=== PATIENT | female | born 1950 | race Caucasian/White ===

== ENCOUNTER 2018-01-04 09:41 | Inpatient (IN) | payer MEDICARE, OTHER, SELFPAY ==
[2018-01-04] VITALS (12 sets, daily range): BP systolic 125–164; BP diastolic 43–66; PULSE 65–84; RESP 15–18; TEMP 36.5–37.4; O2SAT 92–98; BMI 36.0
--- NOTE | 2018-01-04 10:18 | ED.PEDSOB ---
HPI - Pediatric SOB/Dyspnea General Chief Complaint: Shortness of Breath/Dyspnea Stated Complaint: POSSIBLE ASTHMA Time Seen by Provider: 01/04/18 10:17 Related Data Home Medications Medication Instructions Recorded Confirmed albuterol sulfate [ProAir HFA] 1 ea INH PRN #0 02/11/11 01/04/18 aspirin 81 mg PO DAILY #0 02/11/11 01/04/18 metformin 1,000 mg PO BID #0 02/11/11 01/04/18 gabapentin [Neurontin] 300 mg PO DAILY #0 02/02/17 01/04/18 sitagliptin [Januvia] 50 mg PO QDAY #0 02/02/17 01/04/18 trazodone 100 mg PO HS #0 02/02/17 01/04/18 atorvastatin 40 mg PO DAILY 01/04/18 01/04/18 ergocalciferol (vitamin D2) 1 cap PO QWEEK 01/04/18 lisinopril 40 mg PO DAILY 01/04/18 01/04/18 metoprolol succinate 25 mg PO DAILY 01/04/18 01/04/18 metoprolol succinate [Toprol XL] 25 mg PO DAILY 01/04/18 01/04/18 sodium chloride 1 drp OPHTHALMIC (EYE) DIRECTED 01/04/18 01/04/18 Allergies Allergy/AdvReac Type Severity Reaction Status Date / Time acetaminophen [From VICODIN] Allergy Unknown Unverified 11/03/17 12:15 hydrocodone [From VICODIN] Allergy Unknown Unverified 11/03/17 12:15 morphine [MORPHINE] Allergy Unknown Unverified 11/03/17 12:15 Course Vital Signs - 8 hr 01/04/18 09:54 Temperature 99.4 F Pulse Rate 84 Respiratory Rate 16 Blood Pressure 141/43 H Pulse Oximetry 95 Discharge Plan Departure Prescriptions: No Action metformin 500 mg Tablet 1,000 mg PO BID Qty: 0 RF: 0 aspirin 81 mg Tablet,Delayed Release (Dr/Ec) 81 mg PO DAILY Qty: 0 RF: 0 albuterol sulfate [ProAir HFA] 90 mcg/actuation Hfa Aerosol Inhaler 1 ea INH PRN Qty: 0 RF: 0 trazodone 100 MG tablet 100 mg PO HS Qty: 0 RF: 0 gabapentin [Neurontin] 300 MG capsule 300 mg PO DAILY Qty: 0 RF: 0 sitagliptin [Januvia] 50 MG tablet 50 mg PO QDAY Qty: 0 RF: 0 sodium chloride 5 % drops 1 drp ophthalmic (eye) DIRECTED RF: 0 atorvastatin 40 mg tablet 40 mg PO DAILY RF: 0 metoprolol succinate 25 mg tablet extended release 24 hr 25 mg PO DAILY RF: 0 metoprolol succinate [Toprol XL] 25 mg tablet extended release 24 hr 25 mg PO DAILY RF: 0 ergocalciferol (vitamin D2) 50,000 unit capsule 1 cap PO QWEEK RF: 0 lisinopril 40 mg tablet 40 mg PO DAILY RF: 0
--- NOTE | 2018-01-04 11:02 | ED.SOB ---
HPI - SOB/Dyspnea General Chief Complaint: Shortness of Breath/Dyspnea Stated Complaint: POSSIBLE ASTHMA Time Seen by Provider: 01/04/18 10:17 Source: patient Mode of arrival: ambulatory Limitations: no limitations History of Present Illness 67-year-old female with a history of asthma presents with 4 days of increasing cough, dyspnea, and wheezing. She has been using her home inhalers without relief. She notes fevers and chills but no fever is measured here. She is not finding relief with her home inhalers. She is having brown sputum several times a day. She notes some lower abdominal pain related to coughing and is incontinent of stool with coughing episodes. MD Complaint: shortness of breath and cough Consistency/Duration: constant and progressively worsening Relieving factors: bronchodilators Known history of: asthma Related Data Home Medications Medication Instructions Recorded Confirmed albuterol sulfate [ProAir HFA] 1 ea INH PRN #0 02/11/11 01/04/18 aspirin 81 mg PO DAILY #0 02/11/11 01/04/18 metformin 1,000 mg PO BID #0 02/11/11 01/04/18 gabapentin [Neurontin] 300 mg PO DAILY #0 02/02/17 01/04/18 sitagliptin [Januvia] 50 mg PO QDAY #0 02/02/17 01/04/18 trazodone 100 mg PO HS #0 02/02/17 01/04/18 atorvastatin 40 mg PO DAILY 01/04/18 01/04/18 ergocalciferol (vitamin D2) 1 cap PO QWEEK 01/04/18 01/04/18 lisinopril 20 mg PO DAILY 01/04/18 01/04/18 metoprolol succinate [Toprol XL] 25 mg PO DAILY 01/04/18 01/04/18 sodium chloride 1 drp OPHTHALMIC (EYE) DIRECTED 01/04/18 01/04/18 Allergies Allergy/AdvReac Type Severity Reaction Status Date / Time acetaminophen [From VICODIN] Allergy Unknown Unverified 11/03/17 12:15 hydrocodone [From VICODIN] Allergy Unknown Unverified 11/03/17 12:15 morphine [MORPHINE] Allergy Unknown Unverified 11/03/17 12:15 Review of Systems Review of Systems All systems reviewed & are unremarkable except as noted in HPI and below Constitutional Denies chills, Denies fever(s), Denies lethargy and Denies weakness Eyes Denies change in vision, Denies eye discharge, Denies irritation and Denies loss of vision ENT Ears, Nose, Mouth, and Throat: Denies change in voice, Denies neck pain and Denies sore throat Cardiovascular Denies chest pain, Denies irregular heart rhythm, Denies lightheadedness, Denies palpitations, Reports dyspnea, Reports dyspnea on exertion and Denies orthopnea Respiratory Reports cough, Reports dyspnea, Reports dyspnea on exertion and Reports wheezing Gastrointestinal Gastrointestinal: Denies abdominal pain, Denies change in bowel habits, Denies diarrhea, Denies nausea and Denies vomiting Genitourinary Denies hematuria, Denies flank pain, Denies urinary incontinence and Denies urinary urgency Musculoskeletal Denies neck pain Integumentary/Breasts Denies pruritus, Denies erythema, Denies rash and Denies wounds Neurologic Denies confusion, Denies loss of vision and Denies weakness Psychiatric Denies anxiety, Denies confusion, Denies depression, Denies homicidal ideation and Denies suicidal ideation Endocrine Denies palpitations Hematologic/Lymphatic Denies easy bruising Allergic/Immunologic Reports wheezing PFSH Social History household members: spouse Smoking Status: Never smoker alcohol intake: never Exam Initial Vital Signs Initial Vital Signs: Vital Signs Temperature 99.4 F 01/04/18 09:54 Pulse Rate 84 01/04/18 09:54 Respiratory Rate 16 01/04/18 09:54 Blood Pressure 141/43 H 01/04/18 09:54 Pulse Oximetry 95 01/04/18 09:54 Const General: cooperative and well developed Nutritional Appearance: well nourished Orientation: alert, awake, oriented x3 and not confused [facility] Head: normocephalic and atraumatic Ears: external ears normal and TM's normal bilaterally Nose: external nose normal and No nasal discharge Face and sinus: sinuses nontender, face symmetric, no sinus tenderness and No dry mucous membranes Mouth: oral mucosae normal and moist mucous membranes Teeth and gingiva: dentition normal Throat: tonsils normal and uvula midline Eyes General: appearance normal, both eyes and all related structures Eyelids: eyelids normal Conjunctivae: conjunctivae normal Sclera: sclerae normal Pupils: PERRL EOM: EOM intact bilaterally Neck Neck: normal visual inspection, trachea midline, No lymphadenopathy, No midline deformity and No JVD Lymphatic: No lymphedema Chest Chest: normal inspection of the chest Resp Effort & Inspection: normal respiratory effort, able to speak in complete sentences, audible wheezes, cough, no grunting, labored, no respiratory distress and no use of accessory muscles Auscultation: rhonchi and wheezes Cardio Rate: regular rate Rhythm: regular rhythm Heart Sounds: no click, no gallops, no murmurs and no rubs Pulses: normal peripheral pulses GI Inspection: non-distended Palpation: soft, no hepatosplenomegaly, No guarding, No pulsatile mass and No tender Auscultation: normal bowel sounds Back/Spine/Pelvis Back: No CVA tenderness Cervical Spine: cervical ROM normal and No pain with cervical ROM Thoracic/Lumbar Spine: thoracic and lumbar spine normal to inspection Skin General: no rashes or lesions noted, No jaundice and No petechiae Neuro General: alert, oriented x3, gait normal and no focal motor deficits Speech: speech normal Extrem General: full ROM, no clubbing, cyanosis or edema, no pedal edema and no calf tenderness Psych Appearance: well kempt Mental Status: mental status grossly normal Attitude: cooperative Thought Content: normal and suicidality Judgment: judgment good Course Orders Ordered: ED Orders 01/04/18 10:59 Consult to Respiratory Therapy Evaluate & Treat 01/04/18 11:01 XR chest 1V Stat 01/04/18 11:20 B Type Natriuretic Peptide Stat Complete Blood Count AUTO DIFF Stat Comprehensive Metabolic Panel Stat D Dimer Stat Magnesium Stat Procalcitonin Stat 01/04/18 15:18 RT Consult Eval and Treat Now Albuterol (Ventolin) 2.5 mg INH Q2H PRN PRN Reason: Shortness Of Breath Aspirin (Aspirin Ec) 81 mg PO 1700 [facility] Atorvastatin Calcium (Lipitor) 40 mg PO 2100 [facility] Dextrose (D50w) 25 gm IV PRN PRN PRN Reason: HYPOGLYCEMIA Gabapentin (Neurontin) 300 mg PO BEDTIME [facility] Ceftriaxone Sodium/Dextrose (Rocephin) 1 gm in 50 mls @ 100 mls/hr IV Q24H [facility] Azithromycin 500 mg/ Dextrose 250 mls @ 250 mls/hr IV Q24H [facility] Insulin Aspart (Novolog Flexpen) 0 unit SUBCUT ACHS [facility]; Protocol Last Admin: 01/04/18 18:19 Dose: Not Given Lisinopril (Zestril) 20 mg PO 1700 [facility] Last Admin: 01/04/18 18:23 Dose: 20 mg Metformin HCl (Glucophage) 1,000 mg PO 1700,2100 [facility] Last Admin: 01/04/18 18:21 Dose: 1,000 mg Methylprednisolone (Solu-Medrol 125 Mg Vial) 80 mg IV Q8HR [facility] Stop: 01/05/18 06:01 Metoprolol Succinate (Toprol Xl) 25 mg PO 1700 [facility] Last Admin: 01/04/18 18:24 Dose: 25 mg Non-Formulary Medication (Sodium Chloride [Sodium Chloride]) 1 drop ophthalmic (eye) PRN PRN PRN Reason: dry eyes Prednisone (Deltasone) 60 mg PO DAILY [facility] Sitagliptin Phosphate (Januvia) 50 mg PO 1700 [facility] Last Admin: 01/04/18 18:23 Dose: 50 mg Trazodone HCl (Desyrel) 100 mg PO BEDTIME [facility] Discontinued Medications Albuterol (Ventolin) 2.5 mg INH NOW ONE Stop: 01/04/18 13:32 Last Admin: 01/04/18 13:33 Dose: 2.5 mg Albuterol/Ipratropium (Duoneb) 3 ml INH NOW ONE Stop: 01/04/18 11:00 Last Admin: 01/04/18 11:20 Dose: 3 ml Azithromycin (Zithromax) 500 mg PO NOW ONE Stop: 01/04/18 11:00 Last Admin: 01/04/18 11:33 Dose: 500 mg Magnesium Sulfate (Magnesium Sulfate) 2 gm in 50 mls @ 25 mls/hr IV NOW ONE Stop: 01/04/18 12:58 Last Infusion: 01/04/18 13:50 Dose: 0 mls/hr Admin: 01/04/18 11:49 Dose: 25 mls/hr Ceftriaxone Sodium 1,000 mg/ (Dextrose) 50 mls @ 100 mls/hr IV NOW ONE Stop: 01/04/18 13:11 Last Infusion: 01/04/18 14:40 Dose: 0 mls/hr Admin: 01/04/18 13:56 Dose: 100 mls/hr Methylprednisolone (Solu-Medrol 125 Mg Vial) 125 mg IV NOW ONE Stop: 01/04/18 11:00 Last Admin: 01/04/18 11:32 Dose: 125 mg Reevaluation(s) Reevaluation #1: Patient is re-evaluated and is hypoxic in the upper 80s. Notes that her wheezing and dyspnea is worsening, but did initially improve after inhalers. Would like another treatment. Plan to admit the patient due to hypoxia. She is agreeable. Time: 13:55 Consultations Consultation #1: Discussed patient's care with Dr. Tai who will admit the patient Time: 13:56 Vital Signs - 8 hr 01/04/18 11:52 01/04/18 12:31 01/04/18 13:30 Temperature Pulse Rate 65 69 Respiratory Rate 18 15 Blood Pressure Blood Pressure [Right Arm] 125/44 H 144/58 H Pulse Oximetry 98 92 92 01/04/18 13:38 01/04/18 14:42 01/04/18 15:14 Temperature 98.0 F Pulse Rate 70 81 Respiratory Rate 17 16 Blood Pressure 144/61 H Blood Pressure [Right Arm] 132/58 H Pulse Oximetry 94 94 96 01/04/18 16:39 01/04/18 18:23 01/04/18 18:24 Temperature Pulse Rate 81 80 Respiratory Rate Blood Pressure 144/61 H 144/61 H Blood Pressure [Right Arm] Pulse Oximetry 97 MDM - SOB/Dyspnea Differential Diagnosis Likely acute exacerbation of chronic obstructive airways disease, congestive heart failure, community acquired pneumonia, asthma with exacerbation and pulmonary embolism Medical Records Attestation: I reviewed the patient's medical records. Lab Data Attestation: I reviewed the patient's lab results. Result diagrams: 01/04/18 11:20 01/04/18 11:20 Lab Results 01/04/18 01/04/18 01/04/18 Range/Units 11:20 11:20 11:20 WBC 9.8 (4.5-11.0) X10^3/uL RBC 3.59 L (4.0-5.2) X10^6/uL Hgb 11.0 L (12.0-16.0) g/dL Hct 32.5 L (36-46) % MCV 90.3 (80-100) fL MCH 30.6 (26-34) PG MCHC 33.9 (30-36) % RDW 12.2 (11.6-14.8) % Plt Count 346 (150-400) X10^3/uL Neut % (Auto) 74.7 (50-75) % Lymph % (Auto) 18.2 L (25-40) % [place] % (Auto) 6.1 (3-14) % Eos % (Auto) 0.6 L (2-4) % Baso % (Auto) 0.4 (0-2) % Neut # (Auto) 7300 H (8766-2856) /uL D-Dimer 464 H (<230) ng/mL Sodium (137-145) mmol/L Potassium (3.4-5.1) mmol/L Chloride (98-107) mmol/L Carbon Dioxide (22-32) mmol/L BUN (7-17) mg/dL Creatinine (0.52-1.04) mg/dL Estimated GFR (>60) mL/min BUN/Creatinine Ratio (6-22) Glucose (80-110) mg/dL Calcium (8.4-10.2) mg/dL Magnesium (1.6-2.3) mg/dL Total Bilirubin (0.2-1.3) mg/dL AST (14-36) IU/L ALT (9-52) IU/L Alkaline Phosphatase (38-126) U/L B-Natriuretic Peptide < 100.0 (<100) Total Protein (6.3-8.2) g/dL Albumin (3.5-5.0) g/dL Globulin (1.7-4.1) g/dL Albumin/Globulin Ratio (1.0-2.8) Procalcitonin 0.08 (<0.5) ng/mL 01/04/18 Range/Units 11:20 WBC (4.5-11.0) X10^3/uL RBC (4.0-5.2) X10^6/uL Hgb (12.0-16.0) g/dL Hct (36-46) % MCV (80-100) fL MCH (26-34) PG MCHC (30-36) % RDW (11.6-14.8) % Plt Count (150-400) X10^3/uL Neut % (Auto) (50-75) % Lymph % (Auto) (25-40) % [place] % (Auto) (3-14) % Eos % (Auto) (2-4) % Baso % (Auto) (0-2) % Neut # (Auto) (3744-4032) /uL D-Dimer (<230) ng/mL Sodium 138 (137-145) mmol/L Potassium 4.4 (3.4-5.1) mmol/L Chloride 102 (98-107) mmol/L Carbon Dioxide 26 (22-32) mmol/L BUN 15 (7-17) mg/dL Creatinine 1.10 H (0.52-1.04) mg/dL Estimated GFR 49.2 L (>60) mL/min BUN/Creatinine Ratio 13.6 (6-22) Glucose 169 H (80-110) mg/dL Calcium 8.8 (8.4-10.2) mg/dL Magnesium 1.3 L (1.6-2.3) mg/dL Total Bilirubin 0.4 (0.2-1.3) mg/dL AST 27 (14-36) IU/L ALT 35 (9-52) IU/L Alkaline Phosphatase 99 (38-126) U/L B-Natriuretic Peptide (<100) Total Protein 6.8 (6.3-8.2) g/dL Albumin 3.7 (3.5-5.0) g/dL Globulin 3.1 (1.7-4.1) g/dL Albumin/Globulin Ratio 1.2 (1.0-2.8) Procalcitonin (<0.5) ng/mL Imaging Data Chest x-ray: Radiologist's impression: PROCEDURE: XR CHEST 1V INDICATIONS: sob, wheezing TECHNIQUE: One view of the chest was acquired. COMPARISON: Merged with [facility], CHEST 1 VIEW, 02/02/2017, 19:24. FINDINGS: Surgical changes and devices: None. Lungs and pleura: No pleural effusions or pneumothorax. Mild bilateral perihilar opacities present. Bronchial wall thickening is present. Mediastinum: Mediastinal contours appear normal. Heart size is normal. Bones and chest wall: No suspicious bony lesions. Overlying soft tissues appear unremarkable. IMPRESSION: Bilateral bronchopneumonia. Dictated by: Frieda Lopez M.D. on 01/04/2018 at 11:41 Approved by: Frieda Lopez M.D. on 01/04/2018 at 11:41 [facility] Narrative Medical decision making narrative: 67-year-old female with a history of asthma presenting with 4 days of increasing shortness of breath, dyspnea, and sputum production. Her chest x-ray shows bilateral bronchopneumonia and she is hypoxic here. She was started on Rocephin and azithromycin in the ER and received Solu-Medrol, DuoNeb, albuterol x2, and magnesium. Because of the hypoxia and the fact that she does not use oxygen at home she is admitted for further workup and treatment of her condition. I did consider pulmonary embolus initially but as there is a broncho pneumonia to explain her symptoms, I did not feel that CT angiogram needed to be performed given the obvious alternative explanation Discharge Plan Departure Patient Disposition: Admitted As Inpatient Clinical Impression: Community acquired pneumonia, Acute respiratory failure with hypoxia Discharge Date/Time: 01/04/18 16:05 Interventions: ED Discharge Assessment Last Done: 01/04/18 16:30 Admit Date/Time: 01/04/18 14:46 Admit Provider: Monica Tai
[2018-01-04] MEDS: ALBUTEROL/IPRATROPIUM 3 ML AMPUL INH (11:20)
[2018-01-04] MEDS: methylPREDNISolone 125 MG/2 ML VIAL IV (11:32)
[2018-01-04] MEDS: AZITHROMYCIN 250 MG TABLET 500 MG PO (11:33)
[2018-01-04 11:35] LABS: Add Manual Diff / Slide Review NO; Basophils Percent Auto 0.4 % (0-2); Eosinophils Percent Auto 0.6 % (2-4); Hematocrit 32.5 % (36-46); Lymphocytes Percent Auto 18.2 % (25-40); Mean Corpuscular HGB Conc 33.9 % (30-36); Mean Corpuscular Hemoglobin 30.6 PG (26-34); Mean Corpuscular Volume 90.3 fL (80-100); Monocytes Percent Auto 6.1 % (3-14); Neutrophils Absolute Auto 7300 /uL (3000-5900); Neutrophils Percent Auto 74.7 % (50-75); Platelet Count 346 X10^3/uL (150-400); Red Blood Cell Count 3.59 X10^6/uL (4.0-5.2); Red Cell Distribution Width 12.2 % (11.6-14.8); White Blood Cell Count 9.8 X10^3/uL (4.5-11.0)
[2018-01-04 11:43] LABS: D Dimer 464 ng/mL (<230)
[2018-01-04] MEDS: MAGNESIUM SULFATE 2 GM/50 ML PIGGYBACK IV (11:49)
[2018-01-04 11:50] LABS: Alanine Aminotransferase 35 IU/L (9-52); Albumin 3.7 g/dL (3.5-5.0); Albumin Globulin Ratio 1.2 (1.0-2.8); Alkaline Phosphatase 99 U/L (38-126); Aspartate Aminotransferase 27 IU/L (14-36); BUN Creatinine Ratio 13.6 (6-22); Bilirubin Total 0.4 mg/dL (0.2-1.3); Blood Urea Nitrogen 15 mg/dL (7-17); Calcium 8.8 mg/dL (8.4-10.2); Carbon Dioxide 26 mmol/L (22-32); Chloride 102 mmol/L (98-107); Estimated Glomerular Filt Rate 49.2 mL/min (>60); Globulin 3.1 g/dL (1.7-4.1); Glucose 169 mg/dL (80-110); HEMOLYSIS < 15 (0-50); Magnesium 1.3 mg/dL (1.6-2.3); Potassium 4.4 mmol/L (3.4-5.1); Sodium 138 mmol/L (137-145); Total Protein 6.8 g/dL (6.3-8.2)
[2018-01-04 11:55] LABS: B Type Natriuretic Peptide < 100.0 (<100)
[2018-01-04 12:04] LABS: Procalcitonin 0.08 ng/mL (<0.5)
--- NOTE | 2018-01-04 12:30 | PC.NURSE ---
Lung sounds deferred to RT
[2018-01-04] MEDS: ALBUTEROL 2.5 MG/3 ML NEB INH (13:33)
[2018-01-04] MEDS: cefTRIAXone 1,000 MG in DEXTROSE 5 % IN WATER 50 ML 100 ML IV (13:56)
--- NOTE | 2018-01-04 15:27 | PM.HP.1 ---
History of Present Illness Date Patient Seen: 01/04/18 Time Patient Seen: 13:00 Chief complaint: Community acquired pneumonia, acute respiratory Narrative: 67-year-old female, patient of Dr. Sol at the [facility], who was brought to the [facility] today for cough and shortness of breath for 3 days. She started having coughing spells with yellow green colored phlegm about 3 days ago. She also had wheezing and shortness of breath. She had chills and shivering in the past 2 nights. She has remote history of asthma in childhood. She had 2 exacerbations with the last exacerbation about 20 years ago. She was found to have room air oxygen saturation of 88% upon arrival at the ER. Chest x-ray suggests possible bilateral perihilar infiltrate. She was diagnosed with pneumonia. She received a nebulizer treatment and IV Solu-Medrol. She also was started on IV ceftriaxone and azithromycin. She is going to be admitted to the medicine floor for bacterial pneumonia. Patient History Comment: Type 2 diabetes Remote history of asthma Hypertension Osteoarthritis in lower back, knees, and hands Chest pain, hospitalized at [facility] in September of 2017. Had negative Lexiscan Status post cholecystectomy Benign lesion removed from the left breast Family & Social History Social History: She is . She lives with her . Denies cigarette smoking or is alcohol drinking. Meds Home Medications Medication Instructions Recorded Confirmed Type albuterol sulfate [ProAir HFA] 1 ea INH PRN #0 02/11/11 01/04/18 History aspirin 81 mg PO DAILY #0 02/11/11 01/04/18 History metformin 1,000 mg PO BID #0 02/11/11 01/04/18 History gabapentin [Neurontin] 300 mg PO DAILY #0 02/02/17 01/04/18 History sitagliptin [Januvia] 50 mg PO QDAY #0 02/02/17 01/04/18 History trazodone 100 mg PO HS #0 02/02/17 01/04/18 History atorvastatin 40 mg PO DAILY 01/04/18 01/04/18 History ergocalciferol (vitamin D2) 1 cap PO QWEEK 01/04/18 01/04/18 History lisinopril 20 mg PO DAILY 01/04/18 01/04/18 History metoprolol succinate [Toprol XL] 25 mg PO DAILY 01/04/18 01/04/18 History sodium chloride 1 drp OPHTHALMIC (EYE) DIRECTED 01/04/18 01/04/18 History Allergies Allergy/AdvReac Type Severity Reaction Status Date / Time acetaminophen [From VICODIN] Allergy Unknown Unverified 11/03/17 12:15 hydrocodone [From VICODIN] Allergy Unknown Unverified 11/03/17 12:15 morphine [MORPHINE] Allergy Unknown Unverified 11/03/17 12:15 Review of Systems Constitutional Constitutional: Reports chills, Reports fatigue and Reports night sweats Cardiovascular Comments: No chest pain Respiratory Respiratory: Reports as per HPI Gastrointestinal Comments: No abdominal pain, nausea, or vomiting Genitourinary Comments: Denies dysuria Musculoskeletal Musculoskeletal: Reports back pain Neurologic Comments: No headache or blurred vision Endocrine Endocrine: Reports fatigue Exam Vital Signs (past 8 hours): Vital Signs - 8 hr 01/04/18 09:54 01/04/18 11:52 01/04/18 12:31 Temperature 99.4 F Pulse Rate 84 65 Respiratory Rate 16 18 Blood Pressure 141/43 H Blood Pressure [Right Arm] 125/44 H Pulse Oximetry 95 98 92 01/04/18 13:30 01/04/18 13:38 01/04/18 14:42 Temperature Pulse Rate 69 70 Respiratory Rate 15 17 Blood Pressure Blood Pressure [Right Arm] 144/58 H 132/58 H Pulse Oximetry 92 94 94 Pulse Oximetry 94 Oxygen Delivery Method Nasal Cannula Oxygen Flow Rate 2 Narrative Exam Narrative: GENERAL: Middle-aged woman in no acute distress. HEENT: Head normocephalic, atraumatic. Eyes pupils equal round NECK: Supple, no JVD, CHEST: Fine crackles on bilateral bases, no wheezing appreciated CARDIAC: Regular rate and rhythm without murmurs, rubs or gallops. ABDOMEN: Soft, nontender. Normoactive bowel sounds all 4 quadrants. No guarding or rebound. EXTREMITIES: Normal range of motion, no clubbing or edema. NEUROLOGICAL: Alert and oriented; Normal muscle strength. SKIN: Warm, dry, no petechiae, no rashes or lesions. Objective Imaging Chest x-ray: Radiologist's impression: No pleural effusions or pneumothorax. Mild bilateral perihilar opacities present. Bronchial wall thickening is present. Bilateral bronchopneumonia Labs Result Diagrams: 01/04/18 11:20 01/04/18 11:20 Labs: Laboratory Results - last 24 hr 01/04/18 01/04/18 01/04/18 11:20 11:20 11:20 WBC 9.8 RBC 3.59 L Hgb 11.0 L Hct 32.5 L MCV 90.3 MCH 30.6 MCHC 33.9 RDW 12.2 Plt Count 346 Neut % (Auto) 74.7 Lymph % (Auto) 18.2 L [place] % (Auto) 6.1 Eos % (Auto) 0.6 L Baso % (Auto) 0.4 Neut # (Auto) 7300 H D-Dimer 464 H Sodium Potassium Chloride Carbon Dioxide BUN Creatinine Estimated GFR BUN/Creatinine Ratio Glucose Calcium Magnesium Total Bilirubin AST ALT Alkaline Phosphatase B-Natriuretic Peptide < 100.0 Total Protein Albumin Globulin Albumin/Globulin Ratio Procalcitonin 0.08 01/04/18 11:20 WBC RBC Hgb Hct MCV MCH MCHC RDW Plt Count Neut % (Auto) Lymph % (Auto) [place] % (Auto) Eos % (Auto) Baso % (Auto) Neut # (Auto) D-Dimer Sodium 138 Potassium 4.4 Chloride 102 Carbon Dioxide 26 BUN 15 Creatinine 1.10 H Estimated GFR 49.2 L BUN/Creatinine Ratio 13.6 Glucose 169 H Calcium 8.8 Magnesium 1.3 L Total Bilirubin 0.4 AST 27 ALT 35 Alkaline Phosphatase 99 B-Natriuretic Peptide Total Protein 6.8 Albumin 3.7 Globulin 3.1 Albumin/Globulin Ratio 1.2 Procalcitonin Assessment & Plan Plan: Assessment/Plan Narrative: 1. Acute bilateral bacterial pneumonia: Continue ceftriaxone and azithromycin IV. Use albuterol nebulizer treatment as needed. 2. Acute hypoxic respiratory failure secondary to bacterial pneumonia: Use nasal cannula oxygen as needed to keep oxygen saturation greater than 90%. 3. Possible asthma exacerbation: She received IV Solu-Medrol. Continue Solu-Medrol IV for 2 more doses. Start oral prednisone in the morning. Use nebulizer treatments as needed. Continue monitor clinically. We may need to start her on a steroid inhaler prior to hospital discharge. 3. Type 2 diabetes: Anticipate worsening of glycemic control with high-dose steroid use. Continue metformin, Januvia. Start NovoLog insulin per sliding scale. Monitor fingerstick glucose readings before meals and at bedtime. 4. Hypertension: Her primary care provider has recently decreased her lisinopril from 40 mg daily to 20 mg daily due to low blood pressure readings. We will continue monitor her blood pressure. Adjust her medication dosage if it is needed. Continue low-dose metoprolol. 5. Hyperlipidemia: Continue atorvastatin per outpatient dosing.
--- NOTE | 2018-01-04 15:34 | P.HP_ITS ---
History of Present Illness Date Patient Seen: 01/04/18 Time Patient Seen: 13:00 Chief complaint: Community acquired pneumonia, acute respiratory Narrative: 67-year-old female, patient of Dr. Sol at the [facility], who was brought to the [facility] Emergency Room today for cough and shortness of breath for 3 days. She started having coughing spells with yellow green colored phlegm about 3 days ago. She also had wheezing and shortness of breath. She had chills and shivering in the past 2 nights. She has remote history of asthma in childhood. She had 2 exacerbations with the last exacerbation about 20 years ago. She was found to have room air oxygen saturation of 88% upon arrival at the ER. Chest x-ray suggests possible bilateral perihilar infiltrate. She was diagnosed with pneumonia. She received a nebulizer treatment and IV Solu-Medrol. She also was started on IV ceftriaxone and azithromycin. She is going to be admitted to the medicine floor for bacterial pneumonia. Patient History Comment: Type 2 diabetes Remote history of asthma Hypertension Osteoarthritis in lower back, knees, and hands Chest pain, hospitalized at [facility] in September of 2017. Had negative Lexiscan Status post cholecystectomy Benign lesion removed from the left breast Family & Social History Social History: She is . She lives with her . Denies cigarette smoking or is alcohol drinking. Meds Home Medications Medication Instructions Recorded Confirmed Type albuterol sulfate [ProAir HFA] 1 ea INH PRN #0 02/11/11 01/04/18 History aspirin 81 mg PO DAILY #0 02/11/11 01/04/18 History metformin 1,000 mg PO BID #0 02/11/11 01/04/18 History gabapentin [Neurontin] 300 mg PO DAILY #0 02/02/17 01/04/18 History sitagliptin [Januvia] 50 mg PO QDAY #0 02/02/17 01/04/18 History trazodone 100 mg PO HS #0 02/02/17 01/04/18 History atorvastatin 40 mg PO DAILY 01/04/18 01/04/18 History ergocalciferol (vitamin D2) 1 cap PO QWEEK 01/04/18 01/04/18 History lisinopril 20 mg PO DAILY 01/04/18 01/04/18 History metoprolol succinate [Toprol XL] 25 mg PO DAILY 01/04/18 01/04/18 History sodium chloride 1 drp OPHTHALMIC (EYE) DIRECTED 01/04/18 01/04/18 History Allergies Allergy/AdvReac Type Severity Reaction Status Date / Time acetaminophen [From VICODIN] Allergy Unknown Unverified 11/03/17 12:15 hydrocodone [From VICODIN] Allergy Unknown Unverified 11/03/17 12:15 morphine [MORPHINE] Allergy Unknown Unverified 11/03/17 12:15 Review of Systems Constitutional Constitutional: Reports chills, Reports fatigue and Reports night sweats Cardiovascular Comments: No chest pain Respiratory Respiratory: Reports as per HPI Gastrointestinal Comments: No abdominal pain, nausea, or vomiting Genitourinary Comments: Denies dysuria Musculoskeletal Musculoskeletal: Reports back pain Neurologic Comments: No headache or blurred vision Endocrine Endocrine: Reports fatigue Exam Vital Signs (past 8 hours): Vital Signs - 8 hr 3 01/04/18 09:54 01/04/18 11:52 01/04/18 12:31 Temperature 99.4 F Pulse Rate 84 65 Respiratory Rate 16 18 Blood Pressure 141/43 H Blood Pressure [Right Arm] 125/44 H Pulse Oximetry 95 98 92 3 01/04/18 13:30 01/04/18 13:38 01/04/18 14:42 Temperature Pulse Rate 69 70 Respiratory Rate 15 17 Blood Pressure Blood Pressure [Right Arm] 144/58 H 132/58 H Pulse Oximetry 92 94 94 Pulse Oximetry 94 Oxygen Delivery Method Nasal Cannula Oxygen Flow Rate 2 Narrative Exam Narrative: GENERAL: Middle-aged woman in no acute distress. HEENT: Head normocephalic, atraumatic. Eyes pupils equal round NECK: Supple, no JVD, CHEST: Fine crackles on bilateral bases, no wheezing appreciated CARDIAC: Regular rate and rhythm without murmurs, rubs or gallops. ABDOMEN: Soft, nontender. Normoactive bowel sounds all 4 quadrants. No guarding or rebound. EXTREMITIES: Normal range of motion, no clubbing or edema. NEUROLOGICAL: Alert and oriented; Normal muscle strength. SKIN: Warm, dry, no petechiae, no rashes or lesions. Objective Imaging Chest x-ray: Radiologist's impression: No pleural effusions or pneumothorax. Mild bilateral perihilar opacities present. Bronchial wall thickening is present. Bilateral bronchopneumonia Labs Result Diagrams: 01/04/18 11:20 06/12/18 11:20 Labs: Laboratory Results - last 24 hr 01/04/18 01/04/18 01/04/18 11:20 11:20 11:20 WBC 9.8 RBC 3.59 L Hgb 11.0 L Hct 32.5 L MCV 90.3 MCH 30.6 MCHC 33.9 RDW 12.2 Plt Count 346 Neut % (Auto) 74.7 Lymph % (Auto) 18.2 L Newton % (Auto) 6.1 Eos % (Auto) 0.6 L Baso % (Auto) 0.4 Neut # (Auto) 7300 H D-Dimer 464 H Sodium Potassium Chloride Carbon Dioxide BUN Creatinine Estimated GFR BUN/Creatinine Ratio Glucose Calcium Magnesium Total Bilirubin AST ALT Alkaline Phosphatase B-Natriuretic Peptide < 100.0 Total Protein Albumin Globulin Albumin/Globulin Ratio Procalcitonin 0.08 01/04/18 11:20 WBC RBC Hgb Hct MCV MCH MCHC RDW Plt Count Neut % (Auto) Lymph % (Auto) Newton % (Auto) Eos % (Auto) Baso % (Auto) Neut # (Auto) D-Dimer Sodium 138 Potassium 4.4 Chloride 102 Carbon Dioxide 26 BUN 15 Creatinine 1.10 H Estimated GFR 49.2 L BUN/Creatinine Ratio 13.6 Glucose 169 H Calcium 8.8 Magnesium 1.3 L Total Bilirubin 0.4 AST 27 ALT 35 Alkaline Phosphatase 99 B-Natriuretic Peptide Total Protein 6.8 Albumin 3.7 Globulin 3.1 Albumin/Globulin Ratio 1.2 Procalcitonin Assessment & Plan Plan: Assessment/Plan Narrative: 1. Acute bilateral bacterial pneumonia: Continue ceftriaxone and azithromycin IV. Use albuterol nebulizer treatment as needed. 2. Acute hypoxic respiratory failure secondary to bacterial pneumonia: Use nasal cannula oxygen as needed to keep oxygen saturation greater than 90%. 3. Possible asthma exacerbation: She received IV Solu-Medrol. Continue Solu- Medrol IV for 2 more doses. Start oral prednisone in the morning. Use nebulizer treatments as needed. Continue monitor clinically. We may need to start her on a steroid inhaler prior to hospital discharge. 3. Type 2 diabetes: Anticipate worsening of glycemic control with high-dose steroid use. Continue metformin, Januvia. Start NovoLog insulin per sliding scale. Monitor fingerstick glucose readings before meals and at bedtime. 4. Hypertension: Her primary care provider has recently decreased her lisinopril from 40 mg daily to 20 mg daily due to low blood pressure readings. We will continue monitor her blood pressure. Adjust her medication dosage if it is needed. Continue low-dose metoprolol. 5. Hyperlipidemia: Continue atorvastatin per outpatient dosing.
[2018-01-04] MEDS: METFORMIN HCL 500 MG TABLET 1000 MG PO ×2 (18:21→21:28)
[2018-01-04] MEDS: LISINOPRIL 20 MG TABLET PO (18:23)
[2018-01-04] MEDS: SITAGLIPTIN 50 MG TABLET PO (18:23)
[2018-01-04] MEDS: METOPROLOL ER 25 MG TABLET PO (18:24)
--- NOTE | 2018-01-04 18:54 | PC.NURSE ---
Addendum entered by Juana Young R.N. 01/04/18 19:18: Patient uses eye drops QID to each eye, Sodium Chloride 5% as per home use. Patient refused to use her own medication, declined to give the medication to pharmacy for identifying. She understands that per policy all home meds used on the unit which are not formulary need to be identified by Pharmacy. Original Note: Admit note: 1630, patient admitted from ED, BIB due to increase work of breathing, wheezing, and frequent productive cough x 2 days. Patient awake and alert, cooperative. On O2 at 2L via NC, sats 96%. Speaking in full sentences, ambulated to bathroom with FWW, steady gait noted with no increase in WOB. Placed on 30 degree HOB for comfort, infrequent weak productive cough noted. VSS and afebrile. Educated regarding plan of care and environment, call light within reach, BA active. at bedside providing supportive care.
[2018-01-04] MEDS: ATORVASTATIN 20 MG TABLET 40 MG PO (21:26)
[2018-01-04] MEDS: GABAPENTIN 300 MG CAPSULE PO (21:27)
[2018-01-04] MEDS: TRAZODONE 100 MG TABLET PO (21:27)
[2018-01-04] MEDS: methylPREDNISolone 125 MG/2 ML VIAL 80 MG IV (21:28)
[2018-01-05] VITALS (15 sets, daily range): BP systolic 133–152; BP diastolic 52–82; PULSE 52–84; RESP 18–24; TEMP 36.1–36.7; O2SAT 94–100
[2018-01-05] MEDS: methylPREDNISolone 125 MG/2 ML VIAL 80 MG IV (05:40)
[2018-01-05] MEDS: predniSONE 20 MG TABLET 60 MG PO (08:57)
[2018-01-05] MEDS: SODIUM CHLORIDE 0.9% FLUSH 10 ML IV ×3 (08:58→20:59)
[2018-01-05] MEDS: AZITHROMYCIN 500 MG in DEXTROSE 5% IN WATER 250 ML IV (11:42)
[2018-01-05] MEDS: SODIUM CHLORIDE 0.9% 250 ML 21 ML IV (11:45)
[2018-01-05] MEDS: INSULIN ASPART 100 UNIT/ML INSULN PEN SUBCUT ×3 (12:25→21:01)
[2018-01-05] MEDS: CEFTRIAXONE 1 GM/50 ML FROZ.PIGGY IV (13:18)
--- NOTE | 2018-01-05 13:20 | P.PN_ITS ---
Subjective Date Patient Seen: 01/05/18 Time Patient Seen: 12:50 Interval history: Patient has improvement of cough and shortness of breath. She is afebrile. Her glucose was noticed to be in the 200s. She declined sliding scale insulin last night, however agree to have the insulin after she has talked to the nurse and got some explanations of the rationale of using insulin. Exam Vital Signs (past 8 hours): Vital Signs - 8 hr 3 01/05/18 07:50 01/05/18 08:04 01/05/18 12:12 Temperature 97.6 F 97.7 F Pulse Rate 57 L 62 Respiratory Rate 18 18 Blood Pressure 135/59 H 152/57 H Pulse Oximetry 97 97 98 Pulse Oximetry 98 Oxygen Delivery Method Nasal Cannula Oxygen Flow Rate 1 Narrative Exam Narrative: GENERAL: Middle-aged woman in no acute distress. NECK: Supple, no JVD, CHEST: Clear to auscultation bilaterally, no wheezing appreciated CARDIAC: Regular rate and rhythm without murmurs, rubs or gallops. ABDOMEN: Soft, nontender. Normoactive bowel sounds all 4 quadrants. No guarding or rebound. EXTREMITIES: Normal range of motion, no clubbing or edema. NEUROLOGICAL: Alert and oriented; Normal muscle strength. SKIN: Warm, dry, no petechiae, no rashes or lesions. Objective Labs Result Diagrams: 01/04/18 11:20 01/04/18 11:20 Assessment & Plan Plan: Assessment/Plan Narrative: 1. Acute bilateral bacterial pneumonia: Clinically improving. Continue ceftriaxone and azithromycin IV. Use albuterol nebulizer treatment as needed. 2. Acute hypoxic respiratory failure secondary to bacterial pneumonia: Use nasal cannula oxygen as needed to keep oxygen saturation greater than 90%. 3. Possible asthma exacerbation: She received IV Solu-Medrol on January 04, 2018. She was started on oral prednisone this morning and 60 mg daily. Use nebulizer treatments as needed. Continue monitor clinically. We may need to start her on a steroid inhaler prior to hospital discharge. 3. Type 2 diabetes: Glucose is not adequately controlled secondary to high- dose steroid use.. Continue metformin, Januvia. Continue NovoLog insulin per sliding scale. Monitor fingerstick glucose readings before meals and at bedtime. 4. Hypertension: Her primary care provider has recently decreased her lisinopril from 40 mg daily to 20 mg daily due to low blood pressure readings. We will continue monitor her blood pressure. Adjust her medication dosage if it is needed. Continue low-dose metoprolol. 5. Hyperlipidemia: Continue atorvastatin per outpatient dosing. 6. Disposition: Likely discharge home on oral antibiotics tomorrow.
--- NOTE | 2018-01-05 15:20 | CM.DANOTE ---
DCP: assessment: Case received, EMR reviewed and met with pt and her spouse Delgado. Introduced self and role. DCP template completed with info currently available. Pt admitted yesterday afternnoon to care of hospitalist service. Payer: Medicare and [facility] PCP: Dr. Sol: [facility]. Pt is recovering from pneumonia. Carries dx of OA is reports she is somewhat disabled from this. He spouse takes care of her. Her mobility is quite impaired after 3 knee replacement surgeries on L with ongoing problems. She can get about in the home using at times cane, FWW, 4WW. Uses a transport chair if she is going out and walks the few feet she can. than takes over pushing her. She and also care for grandchildren: ages 2 and 5 daily at at times keeping over night. Pt says she is feeling better, still concerned re her blood sugars. She plans home at d/c but is doubtful she will be ready by tomorrow. She is currently up independently in the room.
[2018-01-05] MEDS: SITAGLIPTIN 50 MG TABLET PO (17:24)
[2018-01-05] MEDS: METFORMIN HCL 500 MG TABLET 1000 MG PO ×2 (17:24→20:59)
[2018-01-05] MEDS: ASPIRIN EC 81 MG TABLET PO (17:25)
[2018-01-05] MEDS: LISINOPRIL 20 MG TABLET PO (17:25)
[2018-01-05] MEDS: METOPROLOL ER 25 MG TABLET PO (17:26)
[2018-01-05] MEDS: ALBUTEROL/IPRATROPIUM 3 ML AMPUL INH ×2 (18:17→22:36)
[2018-01-05] MEDS: GABAPENTIN 300 MG CAPSULE PO (20:58)
[2018-01-05] MEDS: ATORVASTATIN 20 MG TABLET 40 MG PO (20:58)
[2018-01-05] MEDS: TRAZODONE 100 MG TABLET PO (21:00)
[2018-01-06 00:50] VITALS: O2SAT 97
[2018-01-06 01:00] VITALS: BP 122/47; PULSE 63; RESP 19; TEMP 36.5; O2SAT 99
[2018-01-06 03:12] VITALS: BP 133/60; PULSE 61; RESP 19; TEMP 36.6; O2SAT 97
[2018-01-06] MEDS: ALBUTEROL/IPRATROPIUM 3 ML AMPUL INH (05:39)
[2018-01-06] MEDS: ACETAMINOPHEN 325 MG TABLET 650 MG PO (07:24)
[2018-01-06 08:00] VITALS: BP 128/68; PULSE 59; RESP 16; TEMP 36.4; O2SAT 96
[2018-01-06 09:45] VITALS: O2SAT 96
[2018-01-06] MEDS: SODIUM CHLORIDE 0.9% FLUSH 10 ML IV (10:14)
[2018-01-06] MEDS: AZITHROMYCIN 500 MG in DEXTROSE 5% IN WATER 250 ML IV (10:50)
--- NOTE | 2018-01-06 10:58 | PM.DS.1 ---
History of Present Illness Date Patient Seen: 01/06/18 Time Patient Seen: 09:58 Chief complaint: Community acquired pneumonia, acute respiratory Narrative: 67-year-old female, patient of Dr. Sol at the [facility], who was brought to the [facility] Emergency Room on the 04 of January for cough and shortness of breath for 3 days. She started having coughing spells with yellow green colored phlegm about 3 days ago. She also had wheezing and shortness of breath. She had chills and shivering in the past 2 nights. She has remote history of asthma in childhood. She had 2 exacerbations with the last exacerbation about 20 years ago. She was found to have room air oxygen saturation of 88% upon arrival at the ER. Chest x-ray suggests possible bilateral perihilar infiltrate. She was diagnosed with pneumonia. She received a nebulizer treatment and IV Solu-Medrol. She also was started on IV ceftriaxone and azithromycin. She is going to be admitted to the medicine floor for bacterial pneumonia. Discharge Providers Date of admission: 01/04/18 14:46 Primary care physician: Darrel Chacon MD Consults: 01/04/18 10:59 Consult to Respiratory Therapy Evaluate & Treat Comment: Physician Instructions: Evaluate and treat Discharge provider: RIVERA Figueroa Discharge Date: 01/06/18 Summary Discharge Diagnosis: 1. Acute bilateral bacterial pneumonia 2. Acute hypoxic respiratory failure secondary to 1. 3. Acute exacerbation of her chronic asthma. 4. Type 2 diabetes 5. Hypertension 6. Hyperlipidemia Hospital Course: This note serves as a summary of a 2 day hospitalization for this 67-year-old patient. Initially upon arrival she had oxygen saturations of 88 on room air. She was placed on 2 L nasal prong oxygen with sats then approaching in the mid 90s. Her respiratory rate has remained 16-20 per minute. Her chest x-ray did not show any pleural effusions or pneumothorax but revealed mild bilateral perihilar opacities consistent with bilateral bronchial pneumonia. Patient is admitted to the inpatient services and treated with ceftriaxone and azithromycin IV. She also was given IV Solu-Medrol and change to oral prednisone 60 mg p.o. as well as bronchodilators for her asthma exacerbation. Her white count and procalcitonin levels were normal. Her D-dimer at the time of admission was 464 but it was felt by admitting providers that this is not related to DVT or PE. Patient states she is eager for discharge and appears clinically markedly improved. She will be sent home on oral antibiotics and reduced doses of oral steroids for the next week. She will be followed up with her primary respiratory care program director in [place]. Status at Discharge Functional status at discharge: independent ambulation Overall status at discharge: patient is back to baseline Time Spent with Patient Greater than 30 minutes Exam Vital Signs (past 8 hours): Vital Signs - 8 hr 01/06/18 03:12 01/06/18 08:00 01/06/18 09:45 Temperature 97.9 F 97.5 F L Pulse Rate 61 59 L Respiratory Rate 19 16 Blood Pressure 133/60 H 128/68 H Pulse Oximetry 97 96 96 Pulse Oximetry 96 Fraction of Inspired Oxygen 21 Oxygen Delivery Method Room Air Oxygen Flow Rate 0 Narrative Exam Narrative: GENERAL: Middle-aged woman in no acute distress. NECK: Supple, no JVD, or lymphadenopathy CHEST: Clear to auscultation bilaterally, no wheezing appreciated CARDIAC: Regular rate and rhythm without murmurs, rubs or gallops. ABDOMEN: Soft, nontender. Normoactive bowel sounds all 4 quadrants. No guarding or rebound. EXTREMITIES: Normal range of motion, no clubbing or edema. NEUROLOGICAL: Alert and oriented; Normal muscle strength. SKIN: Warm, dry, no petechiae, no rashes or lesions. Objective Labs Result Diagrams: 01/04/18 11:20 01/04/18 11:20 Discharge Plan Discharge Plan Patient Disposition: Home, Self-Care Provider Discharge Instructions Diet: Diet as Tolerated and Carb-consistent/Diabetic Activity: As tolerated Oxygen: Room air Discharge Data Primary Care Provider: Darrel Chacon Attending Provider: Monica Tai Admit Date/Time: 01/04/18 14:46
--- NOTE | 2018-01-06 11:01 | P.DS_ITS ---
History of Present Illness Date Patient Seen: 01/06/18 Time Patient Seen: 09:58 Chief complaint: Community acquired pneumonia, acute respiratory Narrative: 67-year-old female, patient of Dr. Sol at the [facility], who was brought to the [facility] Emergency Room on the 04 of January for cough and shortness of breath for 3 days. She started having coughing spells with yellow green colored phlegm about 3 days ago. She also had wheezing and shortness of breath. She had chills and shivering in the past 2 nights. She has remote history of asthma in childhood. She had 2 exacerbations with the last exacerbation about 20 years ago. She was found to have room air oxygen saturation of 88% upon arrival at the ER. Chest x-ray suggests possible bilateral perihilar infiltrate. She was diagnosed with pneumonia. She received a nebulizer treatment and IV Solu-Medrol. She also was started on IV ceftriaxone and azithromycin. She is going to be admitted to the medicine floor for bacterial pneumonia. Discharge Providers Date of admission: 01/04/18 14:46 Primary care physician: Darrel Chacon MD Consults: 01/04/18 10:59 Consult to Respiratory Therapy Evaluate & Treat Comment: Physician Instructions: Evaluate and treat Discharge provider: RIVERA Figueroa Discharge Date: 01/06/18 Summary Discharge Diagnosis: 1. Acute bilateral bacterial pneumonia 2. Acute hypoxic respiratory failure secondary to 1. 3. Acute exacerbation of her chronic asthma. 4. Type 2 diabetes 5. Hypertension 6. Hyperlipidemia Hospital Course: This note serves as a summary of a 2 day hospitalization for this 67-year-old patient. Initially upon arrival she had oxygen saturations of 88 on room air. She was placed on 2 L nasal prong oxygen with sats then approaching in the mid 90s. Her respiratory rate has remained 16-20 per minute. Her chest x-ray did not show any pleural effusions or pneumothorax but revealed mild bilateral perihilar opacities consistent with bilateral bronchial pneumonia. Patient is admitted to the inpatient services and treated with ceftriaxone and azithromycin IV. She also was given IV Solu-Medrol and change to oral prednisone 60 mg p.o. as well as bronchodilators for her asthma exacerbation. Her white count and procalcitonin levels were normal. Her D- dimer at the time of admission was 464 but it was felt by admitting providers that this is not related to DVT or PE. Patient states she is eager for discharge and appears clinically markedly improved. She will be sent home on oral antibiotics and reduced doses of oral steroids for the next week. She will be followed up with her primary child care assistant in [place]. Status at Discharge Functional status at discharge: independent ambulation Overall status at discharge: patient is back to baseline Time Spent with Patient Greater than 30 minutes Exam Vital Signs (past 8 hours): Vital Signs - 8 hr 3 01/06/18 03:12 01/06/18 08:00 01/06/18 09:45 Temperature 97.9 F 97.5 F L Pulse Rate 61 59 L Respiratory Rate 19 16 Blood Pressure 133/60 H 128/68 H Pulse Oximetry 97 96 96 Pulse Oximetry 96 Fraction of Inspired Oxygen 21 Oxygen Delivery Method Room Air Oxygen Flow Rate 0 Narrative Exam Narrative: GENERAL: Middle-aged woman in no acute distress. NECK: Supple, no JVD, or lymphadenopathy CHEST: Clear to auscultation bilaterally, no wheezing appreciated CARDIAC: Regular rate and rhythm without murmurs, rubs or gallops. ABDOMEN: Soft, nontender. Normoactive bowel sounds all 4 quadrants. No guarding or rebound. EXTREMITIES: Normal range of motion, no clubbing or edema. NEUROLOGICAL: Alert and oriented; Normal muscle strength. SKIN: Warm, dry, no petechiae, no rashes or lesions. Objective Labs Result Diagrams: 01/04/18 11:20 01/04/18 11:20 Discharge Plan Discharge Plan Patient Disposition: Home, Self-Care Provider Discharge Instructions Diet: Diet as Tolerated and Carb-consistent/Diabetic Activity: As tolerated Oxygen: Room air Discharge Data Primary Care Provider: Darrel Chacon Attending Provider: Monica Tai Admit Date/Time: 01/04/18 14:46
[2018-01-06] MEDS: AZITHROMYCIN 250 MG TABLET PO (13:00)
--- NOTE | 2018-01-06 13:36 | PC.NURSE ---
Accidentally discharged pt from system prior to charting and pt actually leaving. Assessment- pt with non productive cough, inspiratory wheezing. On RA. SBA to bathroom and OOB. BS checked this AM, 150. Pt declined coverage. At lunch after 40 mg prednisone given, BS was 164, did not provide coverage either per pt request. tele d/c this AM and PIV removed around 1245. present at bedside. d/c instructions provided to pt and . Rx sent home with pt and . notified of when to f/u with MD and to call if any questions or concerns. pt states she took all belongings home with her. hourly rounding provided, call light within reach.
== END 2018-01-06 12:55 | disposition home or self-care (01) | DRG 194 ==
LOC: ED 13:54 → AC 14:47
PROVIDERS: Admitting Provider Internal Medicine; Emergency Provider Emergency Medicine; PCP Internal Medicine Cardiovascular Disease; Visit Provider Internal Medicine
DX: J15.9 Unspecified bacterial pneumonia (principal); J45.901 Unspecified asthma with (acute) exacerbation; E11.9 Type 2 diabetes mellitus without complications; Z79.84 Long term (current) use of oral hypoglycemic drugs; I10 Essential (primary) hypertension; E78.5 Hyperlipidemia, unspecified; R09.02 Hypoxemia
CPT/HCPCS: 36415; 36591; 71045; 80053; 82962; 83735; 83880; 84145; 85025; 85379; 93005; 94150; 94640; 96365; 96366; 96367; 96375; 99283; 99284; 99285; J0696; J2930; J7613

== ENCOUNTER 2018-04-04 19:42 | Emergency (ER) | payer MEDICARE, OTHER, SELFPAY ==
[2018-01-04 16:39] VITALS: BMI 36.0
[2018-04-04 19:50] VITALS: BP 154/60; PULSE 61; RESP 20; TEMP 36.3; O2SAT 100; BMI 33.3
--- NOTE | 2018-04-04 21:06 | PC.NURSE ---
Pt states she was bending to put shoe on and just fell. Denies any symptoms prior. Unsure if she lost consciousness. Her was by her side within seconds of her falling and says she was talking. She states the entire left side of her body hurts. She has a bad knee, that she fell on, her hip hurts, her shoulder hurts and her left side of head/face hurts.
--- NOTE | 2018-04-04 21:16 | ED.FALL ---
HPI - Fall General Chief Complaint: Fall Stated Complaint: FALL HIT HEAD ON COFFEE TABLE Time Seen by Provider: 04/04/18 20:59 Source: patient and family () Limitations: no limitations History of Present Illness HPI Narrative: This is a 67-year-old female who comes to the emergency department with complaint of ground level fall. Patient states she was trying to put on her shoe holding onto a pole, she had this you part way on and fell over to her left side. Patient did strike her head on the ground. Um she does take aspirin daily. She has had a little bit of pain on the side of her neck but no midline pain. The left shoulder pain left-sided chest as well as hip and knee pain. Patient states that her and her were able to roll her and eventually get her up but she has pain with weight-bearing in her left hip. She also has some pain in her left knee but has chronic issues from a prior partial knee that had complications. Patient denies any loss of consciousness. She denies any shortness of breath or chest pain. She feels slightly nauseated but no vomiting. No vision changes. Has been states he was in the room within seconds of the fall Um and sounds like she did have any loss of consciousness. complaint: fall Fall from: standing Place fall occurred: home Loss of consciousness: none Prolonged down time: no Symptoms prior to fall: none Context: tripped/slipped Related Data Home Medications Medication Instructions Recorded Confirmed albuterol sulfate [ProAir HFA] 1 ea INH PRN #0 02/11/11 01/04/18 aspirin 81 mg PO DAILY #0 02/11/11 01/04/18 metformin 1,000 mg PO BID #0 02/11/11 01/04/18 gabapentin [Neurontin] 300 mg PO DAILY #0 02/02/17 01/04/18 sitagliptin [Januvia] 50 mg PO QDAY #0 02/02/17 01/04/18 trazodone 100 mg PO HS #0 02/02/17 01/04/18 atorvastatin 40 mg PO DAILY 01/04/18 01/04/18 ergocalciferol (vitamin D2) 1 cap PO QWEEK 01/04/18 01/04/18 lisinopril 20 mg PO DAILY 01/04/18 01/04/18 metoprolol succinate 25 mg PO DAILY 01/04/18 01/04/18 sodium chloride 1 drp OPHTHALMIC (EYE) DIRECTED 01/04/18 01/04/18 Previous Rx's Medication Instructions Recorded prednisone 40 mg PO DAILY #4 tab 01/06/18 acetaminophen-codeine 1 tab PO Q6H PRN #5 tab 04/04/18 [Tylenol-Codeine #3] Allergies Allergy/AdvReac Type Severity Reaction Status Date / Time acetaminophen [From VICODIN] Allergy Severe Palpitation Verified 01/05/18 06:38 s hydrocodone [From VICODIN] Allergy Severe Palpitation Verified 01/05/18 06:45 s morphine [MORPHINE] Allergy Severe Palpitation Verified 01/05/18 06:43 s Review of Systems Review of Systems All systems reviewed & are unremarkable except as noted in HPI and below Constitutional Denies chills, Denies fever(s), Reports headache(s), Denies lethargy and Denies weakness Eyes Denies change in vision ENT Ears, Nose, Mouth, and Throat: Reports headache(s) and Reports neck pain (Left-sided neck) Cardiovascular Denies chest pain, Denies irregular heart rhythm, Denies lightheadedness, Denies palpitations, Denies dyspnea, Denies dyspnea on exertion and Denies orthopnea Respiratory Denies cough, Denies dyspnea, Denies dyspnea on exertion and Denies wheezing Gastrointestinal Gastrointestinal: Denies abdominal pain, Denies change in bowel habits, Denies diarrhea, Denies nausea and Denies vomiting Genitourinary Denies hematuria and Denies flank pain Musculoskeletal Reports as per HPI, Denies back pain, Reports arthralgias (Left shoulder, hip and knee), Reports limited range of motion, Denies muscle weakness, Reports neck pain (Left-sided neck), Denies numbness, Reports stiffness and Denies tingling Integumentary/Breasts Denies rash and Denies unusual bruising Neurologic Reports headache(s), Denies numbness, Denies tingling and Denies weakness Endocrine Denies palpitations Allergic/Immunologic Denies wheezing Exam Initial Vital Signs Initial Vital Signs: Vital Signs Temperature 97.4 F L 04/04/18 19:50 Pulse Rate 61 04/04/18 19:50 Respiratory Rate 20 04/04/18 19:50 Blood Pressure 154/60 H 04/04/18 19:50 Pulse Oximetry 100 04/04/18 19:50 Const General: cooperative and well developed Nutritional Appearance: well nourished Orientation: alert, awake, oriented x3 and not confused HENID Head: normocephalic and atraumatic Ears: external ears normal and TM's normal bilaterally Nose: external nose normal, nares normal and No nasal discharge Face and sinus: sinuses nontender, face symmetric, no sinus tenderness and No dry mucous membranes Mouth: oral mucosae normal and moist mucous membranes Teeth and gingiva: dentition normal Throat: tonsils normal and uvula midline Eyes General: appearance normal, both eyes and all related structures Eyelids: eyelids normal Conjunctivae: conjunctivae normal Sclera: sclerae normal Pupils: PERRL EOM: EOM intact bilaterally Neck Neck: normal visual inspection, full ROM, trachea midline, No lymphadenopathy, No midline deformity and No JVD Lymphatic: No lymphedema Chest Chest: normal inspection of the chest Resp Effort & Inspection: normal respiratory effort, able to speak in complete sentences, no respiratory distress and no use of accessory muscles Auscultation: clear to auscultation bilaterally, no rales, no rhonchi and no wheezes Cardio Rate: regular rate Rhythm: regular rhythm Heart Sounds: no click, no gallops, no murmurs and no rubs Pulses: normal peripheral pulses GI Inspection: non-distended Palpation: soft, no hepatosplenomegaly, No guarding, No pulsatile mass and No tender Auscultation: normal bowel sounds Back/Spine/Pelvis Back: normal to inspection Skin General: no rashes or lesions noted, No ecchymosis, No jaundice and No petechiae Neuro General: alert, oriented x3, gait normal and no focal motor deficits Cranial Nerves: CN's II-XI intact bilaterally Cognition: normal cognition Speech: speech normal Extrem General: normal to inspection Right lower extremity: normal to inspection and full ROM; no edema Left lower extremity: normal to inspection; abnormal ROM (Patient has full range of motion of the left knee. She has pain with palpation of the left hip but is able to lift her lower extremity.) and no edema [facility] Social History household members: spouse Smoking Status: Never smoker alcohol intake: never Course Orders Ordered: ED Orders 04/04/18 21:16 CT head/brain wo con Stat XR chest 1V Stat XR hip w pel if done LT min 4V Stat XR knee LT 3V Stat Discontinued Medications Acetaminophen (Tylenol) 975 mg PO NOW ONE Stop: 04/04/18 21:17 Last Admin: 04/04/18 22:23 Dose: Reevaluation(s) Reevaluation #1: Re-evaluation after imaging. Patient has not had Tylenol and is still uncomfortable but feels ready to go home. We reviewed her imaging. Patient and states she both takes Tylenol regularly and given prescription for Tylenol No. 3 because she does not do well with narcotics only take if really needed. Vital Signs - 8 hr 04/04/18 19:50 04/04/18 22:23 Temperature 97.4 F L Pulse Rate 61 72 Respiratory Rate 20 18 Blood Pressure 154/60 H 159/57 H Pulse Oximetry 100 100 MDM - Fall Imaging Data CT scan - head: Radiologist's impression: [address] [address] [address] Scan Report Signed Patient: Jaimie Deutsch [facility]#: [id number] : 9Acct:[id number] Age/Sex: 67 / FDate of Service: 04/04/18 Loc: ED Accession Number: [id number] Procedure: CT head/brain wo con Ordering Provider: Myrna Garvin D.O. PROCEDURE: CT HEAD/BRAIN WO CON INDICATIONS: ground level fall, hit head on asa TECHNIQUE: Noncontrast 4.5 mm thick angled axial sections acquired from the foramen magnum to the vertex, with coronal and sagittal reformats. For radiation dose reduction, the following was used: automated exposure control, adjustment of mA and/or kV according to patient size. COMPARISON: [facility], , MR HEAD/BRAIN WO CON, 12/01/2017, 17:44. FINDINGS: Image quality: Excellent. CSF spaces: Basal cisterns are patent. No extra-axial fluid collections. The ventricles are symmetric in size and shape. Brain: No intracranial bleeds or masses. There is cerebral volume loss for age, with resultant ventricular and sulcal prominence. There are periventricular and deep white matter chronic small vessel ischemic changes. There is intracranial internal carotid artery atherosclerosis. Skull and face: Calvarium and visualized facial bones appear intact, without suspicious lesions. Sinuses: Visualized sinuses and mastoids are clear. IMPRESSION: No CT evidence of acute intracranial pathology. No acute skull fracture. Mild atrophy and chronic mild to moderate periventricular white matter microangiopathic changes. Dictated by: Colin Mendiola M.D. on 04/04/2018 at 21:45 Approved by: Colin Mendiola M.D. on 04/04/2018 at 21:47 knee x-ray: Radiologist's impression: [address] [address] XRay Report Signed Patient: Jaimie eDutsch [facility]#: [id number] : 9Acct:[id number] Age/Sex: 67 / FDate of Service: 04/04/18 Loc: ED Accession Number: [id number] Procedure: XR knee LT 3V Ordering Provider: Myrna Garvin D.O. PROCEDURE: XR KNEE LT 3V INDICATIONS: left knee pain after ground level fall TECHNIQUE: 3 views of the knee were acquired. COMPARISON: [facility], , KNEE 1-2 VIEWS LEFT, 02/11/2011, 14:52. FINDINGS: Bones: Patient is status post prior arthroplasty a medial femoral tibial compartment. Osteophytic changes are noted in the lateral femorotibial compartment and patellofemoral compartment. No acute fracture or dislocation. No gross hardware loosening or failure. No significant patellar subluxation. Soft tissues: Small joint effusion is seen. No suspicious soft tissue calcifications. IMPRESSION: Prior medial femoral tibial compartment arthroplasty. No acute left knee fracture or dislocation. Dictated by: Colin Mendiola M.D. on 04/04/2018 at 22:04 Approved by: Colin Mendiola M.D. on 04/04/2018 at 22:05 hip x-ray: Radiologist's impression: Patient: Jaimie Deutsch [facility]#: [id number] : 9At:[id number] Age/Sex: 67 / FDate of Service: 04/04/18 Loc: ED Accession Number: [id number] Procedure: XR hip w pel if done LT min 4V Ordering Provider: Myrna Garvin D.O. PROCEDURE: [id number] W PEL IF PERFORMED INDICATIONS: left hip pain, s/p fall TECHNIQUE: AP pelvis with lateral view(s) of the bilateral hip(s). COMPARISON: None. FINDINGS: Bones: No fractures or dislocations. Pelvic ring appears intact. No suspicious bony lesions. 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 No evidence of avascular necrosis. Soft tissues: The visualized bowel gas pattern is normal. No suspicious soft tissue calcifications. IMPRESSION: No gross acute pelvic or hip fracture. No hip dislocation. Mild bilateral hip joint osteoarthritis. Dictated by: Colin Mendiola M.D. on 04/04/2018 at 22:03 Approved by: Colin Mendiola M.D. on 04/04/2018 at 22:04 Chest x-ray: Radiologist's impression: [address] [address] XRay Report Signed Patient: Jaimie Deutsch [facility]#: [id number] : 9Acct:[id number] Age/Sex: 67 / FDate of Service: 04/04/18 Loc: ED Accession Number: [id number] Procedure: XR chest 1V Ordering Provider: Myrna Garvin D.O. PROCEDURE: XR CHEST 1V INDICATIONS: ground level fall left rib pain TECHNIQUE: One view of the chest was acquired. COMPARISON: [facility], , XR CHEST 1V, 01/04/2018, 11:24. FINDINGS: Surgical changes and devices: None. Lungs and pleura: No pleural effusions or pneumothorax. Lungs are clear. Mediastinum: Mediastinal contours appear normal. Heart size is normal. Bones and chest wall: No suspicious bony lesions. Overlying soft tissues appear unremarkable. IMPRESSION: No acute cardiopulmonary pathology. Dictated by: Colin Mendiola M.D. on 04/04/2018 at 22:05 Approved by: Colin Mendiola M.D. on 04/04/2018 at 22:05 [facility] Narrative Medical decision making narrative: Patient had a ground level fall where she struck her head. Does not sound like there was a loss of consciousness but she does take blood thinners so head CT was ordered. Patient had left-sided rib pain of the chest, shoulder which showed had good movement. She also had left hip pain and within able to weight bear on the left hip as well as left knee pain. Imaging was obtained and showed no acute findings. Patient was able to get a dressing get home with assistance from her . She plans to continue Tylenol unless it is not controlling her pain and then will take Tylenol 3. Discussed signs and symptoms to watch out for and reasons to return. Her fall sounds like it was a trip and fall and that there was no syncope or other concerning cause of her fall. Discharge Plan Departure Patient Disposition: Home Clinical Impression: Acute pain of left hip, Left sided chest pain Discharge Date/Time: 04/04/18 22:24 Interventions: ED Discharge Assessment Last Done: 04/04/18 22:23 Instructions: DI for Hip Pain Activity Restrictions/Additional Instructions: Follow-up with your primary care physician in the next 2-3 days for recheck. You may continue all your home medications as prescribed. Prescriptions: New acetaminophen-codeine [Tylenol-Codeine #3] 300-30 mg tablet 1 tab PO Q6H PRN (Reason: pain) Qty: 5 RF: 0 No Action metformin 500 mg Tablet 1,000 mg PO BID Qty: 0 RF: 0 aspirin 81 mg Tablet,Delayed Release (Dr/Ec) 81 mg PO DAILY Qty: 0 RF: 0 albuterol sulfate [ProAir HFA] 90 mcg/actuation Hfa Aerosol Inhaler 1 ea INH PRN Qty: 0 RF: 0 trazodone 100 MG tablet 100 mg PO HS Qty: 0 RF: 0 gabapentin [Neurontin] 300 MG capsule 300 mg PO DAILY Qty: 0 RF: 0 sitagliptin [Januvia] 50 MG tablet 50 mg PO QDAY Qty: 0 RF: 0 sodium chloride 5 % drops 1 drp ophthalmic (eye) DIRECTED RF: 0 atorvastatin 40 mg tablet 40 mg PO DAILY RF: 0 metoprolol succinate 25 mg tablet extended release 24 hr 25 mg PO DAILY RF: 0 ergocalciferol (vitamin D2) 50,000 unit capsule 1 cap PO QWEEK RF: 0 lisinopril 20 mg tablet 20 mg PO DAILY RF: 0 prednisone 20 mg Tablet 40 mg PO DAILY Qty: 4 RF: 0
--- NOTE | 2018-04-04 21:22 | ED_ITS ---
HPI - Fall General Chief Complaint: Fall Stated Complaint: FALL HIT HEAD ON COFFEE TABLE Time Seen by Provider: 04/04/18 20:59 Source: patient and family () Limitations: no limitations History of Present Illness HPI Narrative: This is a 67-year-old female who comes to the emergency department with complaint of ground level fall. Patient states she was trying to put on her shoe holding onto a pole, she had this you part way on and fell over to her left side. Patient did strike her head on the ground. Um she does take aspirin daily. She has had a little bit of pain on the side of her neck but no midline pain. The left shoulder pain left-sided chest as well as hip and knee pain. Patient states that her and her were able to roll her and eventually get her up but she has pain with weight-bearing in her left hip. She also has some pain in her left knee but has chronic issues from a prior partial knee that had complications. Patient denies any loss of consciousness. She denies any shortness of breath or chest pain. She feels slightly nauseated but no vomiting. No vision changes. Has been states he was in the room within seconds of the fall Um and sounds like she did have any loss of consciousness. complaint: fall Fall from: standing Place fall occurred: home Loss of consciousness: none Prolonged down time: no Symptoms prior to fall: none Context: tripped/slipped Related Data Home Medications Medication Instructions Recorded Confirmed albuterol sulfate [ProAir HFA] 1 ea INH PRN #0 02/11/11 01/04/18 aspirin 81 mg PO DAILY #0 02/11/11 01/04/18 metformin 1,000 mg PO BID #0 02/11/11 01/04/18 gabapentin [Neurontin] 300 mg PO DAILY #0 02/02/17 01/04/18 sitagliptin [Januvia] 50 mg PO QDAY #0 02/02/17 01/04/18 trazodone 100 mg PO HS #0 02/02/17 01/04/18 atorvastatin 40 mg PO DAILY 01/04/18 01/04/18 ergocalciferol (vitamin D2) 1 cap PO QWEEK 01/04/18 01/04/18 lisinopril 20 mg PO DAILY 01/04/18 01/04/18 metoprolol succinate 25 mg PO DAILY 01/04/18 01/04/18 sodium chloride 1 drp OPHTHALMIC (EYE) DIRECTED 01/04/18 01/04/18 Previous Rx's Medication Instructions Recorded prednisone 40 mg PO DAILY #4 tab 01/06/18 acetaminophen-codeine 1 tab PO Q6H PRN #5 tab 04/04/18 [Tylenol-Codeine #3] Allergies Allergy/AdvReac Type Severity Reaction Status Date / Time acetaminophen [From VICODIN] Allergy Severe Palpitation Verified 01/05/18 06:38 s hydrocodone [From VICODIN] Allergy Severe Palpitation Verified 01/05/18 06:45 s morphine [MORPHINE] Allergy Severe Palpitation Verified 01/05/18 06:43 s Review of Systems Review of Systems All systems reviewed & are unremarkable except as noted in HPI and below Constitutional Denies chills, Denies fever(s), Reports headache(s), Denies lethargy and Denies weakness Eyes Denies change in vision ENT Ears, Nose, Mouth, and Throat: Reports headache(s) and Reports neck pain (Left- sided neck) Cardiovascular Denies chest pain, Denies irregular heart rhythm, Denies lightheadedness, Denies palpitations, Denies dyspnea, Denies dyspnea on exertion and Denies orthopnea Respiratory Denies cough, Denies dyspnea, Denies dyspnea on exertion and Denies wheezing Gastrointestinal Gastrointestinal: Denies abdominal pain, Denies change in bowel habits, Denies diarrhea, Denies nausea and Denies vomiting Genitourinary Denies hematuria and Denies flank pain Musculoskeletal Reports as per HPI, Denies back pain, Reports arthralgias (Left shoulder, hip and knee), Reports limited range of motion, Denies muscle weakness, Reports neck pain (Left-sided neck), Denies numbness, Reports stiffness and Denies tingling Integumentary/Breasts Denies rash and Denies unusual bruising Neurologic Reports headache(s), Denies numbness, Denies tingling and Denies weakness Endocrine Denies palpitations Allergic/Immunologic Denies wheezing Exam Initial Vital Signs Initial Vital Signs: Vital Signs Temperature 97.4 F L 04/04/18 19:50 Pulse Rate 61 04/04/18 19:50 Respiratory Rate 20 04/04/18 19:50 Blood Pressure 154/60 H 04/04/18 19:50 Pulse Oximetry 100 04/04/18 19:50 Const General: cooperative and well developed Nutritional Appearance: well nourished Orientation: alert, awake, oriented x3 and not confused HENRI Head: normocephalic and atraumatic Ears: external ears normal and TM's normal bilaterally Nose: external nose normal, nares normal and No nasal discharge Face and sinus: sinuses nontender, face symmetric, no sinus tenderness and No dry mucous membranes Mouth: oral mucosae normal and moist mucous membranes Teeth and gingiva: dentition normal Throat: tonsils normal and uvula midline Eyes General: appearance normal, both eyes and all related structures Eyelids: eyelids normal Conjunctivae: conjunctivae normal Sclera: sclerae normal Pupils: PERRL EOM: EOM intact bilaterally Neck Neck: normal visual inspection, full ROM, trachea midline, No lymphadenopathy, No midline deformity and No JVD Lymphatic: No lymphedema Chest Chest: normal inspection of the chest Resp Effort & Inspection: normal respiratory effort, able to speak in complete sentences, no respiratory distress and no use of accessory muscles Auscultation: clear to auscultation bilaterally, no rales, no rhonchi and no wheezes Cardio Rate: regular rate Rhythm: regular rhythm Heart Sounds: no click, no gallops, no murmurs and no rubs Pulses: normal peripheral pulses GI Inspection: non-distended Palpation: soft, no hepatosplenomegaly, No guarding, No pulsatile mass and No tender Auscultation: normal bowel sounds Back/Spine/Pelvis Back: normal to inspection Skin General: no rashes or lesions noted, No ecchymosis, No jaundice and No petechiae Neuro General: alert, oriented x3, gait normal and no focal motor deficits Cranial Nerves: CN's II-XI intact bilaterally Cognition: normal cognition Speech: speech normal Extrem General: normal to inspection Right lower extremity: normal to inspection and full ROM; no edema Left lower extremity: normal to inspection; abnormal ROM (Patient has full range of motion of the left knee. She has pain with palpation of the left hip but is able to lift her lower extremity.) and no [facility] Social History household members: spouse Smoking Status: Never smoker alcohol intake: never Course Orders Ordered: ED Orders 04/04/18 21:16 CT head/brain wo con Stat XR chest 1V Stat XR hip w pel if done LT min 4V Stat XR knee LT 3V Stat Discontinued Medications Acetaminophen (Tylenol) 975 mg PO NOW ONE Stop: 04/04/18 21:17 Last Admin: 04/04/18 22:23 Dose: Reevaluation(s) Reevaluation #1: Re-evaluation after imaging. Patient has not had Tylenol and is still uncomfortable but feels ready to go home. We reviewed her imaging. Patient and states she both takes Tylenol regularly and given prescription for Tylenol No. 3 because she does not do well with narcotics only take if really needed. Vital Signs - 8 hr 04/04/18 19:50 04/04/18 22:23 Temperature 97.4 F L Pulse Rate 61 72 Respiratory Rate 20 18 Blood Pressure 154/60 H 159/57 H Pulse Oximetry 100 100 MDM - Fall Imaging Data CT scan - head: Radiologist's impression: [address] [address] [address] Scan Report Signed Patient: Jaimie Deutsch [facility]#: [id number] : 9Acct:[id number] Age/Sex: 67 / FDate of Service: 04/04/18 Loc: ED Accession Number: [id number] Procedure: CT head/brain wo con Ordering Provider: Myrna Garvin D.O. PROCEDURE: CT HEAD/BRAIN WO CON INDICATIONS: ground level fall, hit head on asa TECHNIQUE: Noncontrast 4.5 mm thick angled axial sections acquired from the foramen magnum to the vertex, with coronal and sagittal reformats. For radiation dose reduction, the following was used: automated exposure control, adjustment of mA and/or kV according to patient size. COMPARISON: [facility], , MR HEAD/BRAIN WO CON, 12/01/2017, 17:44. FINDINGS: Image quality: Excellent. CSF spaces: Basal cisterns are patent. No extra-axial fluid collections. The ventricles are symmetric in size and shape. Brain: No intracranial bleeds or masses. There is cerebral volume loss for age , with resultant ventricular and sulcal prominence. There are periventricular and deep white matter chronic small vessel ischemic changes. There is intracranial internal carotid artery atherosclerosis. Skull and face: Calvarium and visualized facial bones appear intact, without suspicious lesions. Sinuses: Visualized sinuses and mastoids are clear. IMPRESSION: No CT evidence of acute intracranial pathology. No acute skull fracture. Mild atrophy and chronic mild to moderate periventricular white matter microangiopathic changes. Dictated by: Colin Mendiola M.D. on 04/04/2018 at 21:45 Approved by: Colin Mendiola M.D. on 04/04/2018 at 21:47 knee x-ray: Radiologist's impression: [address] [address] XRay Report Signed Patient: Jaimie Deutsch [facility]#: [id number] : 9Acct:[id number] Age/Sex: 67 / FDate of Service: 04/04/18 Loc: ED Accession Number: [id number] Procedure: XR knee LT 3V Ordering Provider: Myrna Garvin D.O. PROCEDURE: XR KNEE LT 3V INDICATIONS: left knee pain after ground level fall TECHNIQUE: 3 views of the knee were acquired. COMPARISON: [facility], , KNEE 1-2 VIEWS LEFT, 02/11/2011, 14:52. FINDINGS: Bones: Patient is status post prior arthroplasty a medial femoral tibial compartment. Osteophytic changes are noted in the lateral femorotibial compartment and patellofemoral compartment. No acute fracture or dislocation. No gross hardware loosening or failure. No significant patellar subluxation. Soft tissues: Small joint effusion is seen. No suspicious soft tissue calcifications. IMPRESSION: Prior medial femoral tibial compartment arthroplasty. No acute left knee fracture or dislocation. Dictated by: Colin Mendiola M.D. on 04/04/2018 at 22:04 Approved by: Colin Mendiola M.D. on 04/04/2018 at 22:05 hip x-ray: Radiologist's impression: Patient: Jaimie Deutsch [facility]#: [id number] : 9At:[id number] Age/Sex: 67 / FDate of Service: 04/04/18 Loc: ED Accession Number: [id number] Procedure: XR hip w pel if done LT min 4V Ordering Provider: Myrna Garvin D.O. PROCEDURE: [id number] W PEL IF PERFORMED INDICATIONS: left hip pain, s/p fall TECHNIQUE: AP pelvis with lateral view(s) of the bilateral hip(s). COMPARISON: None. FINDINGS: Bones: No fractures or dislocations. Pelvic ring appears intact. No suspicious bony lesions. 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 No evidence of avascular necrosis. Soft tissues: The visualized bowel gas pattern is normal. No suspicious soft tissue calcifications. IMPRESSION: No gross acute pelvic or hip fracture. No hip dislocation. Mild bilateral hip joint osteoarthritis. Dictated by: Colin Mendiola M.D. on 04/04/2018 at 22:03 Approved by: Colin Mendiola M.D. on 04/04/2018 at 22:04 Chest x-ray: Radiologist's impression: [address] [address] XRay Report Signed Patient: Jaimie Deutsch [facility]#: [id number] : 9Acct:[id number] Age/Sex: 67 / FDate of Service: 04/04/18 Loc: ED Accession Number: [id number] Procedure: XR chest 1V Ordering Provider: Myrna Garvin D.O. PROCEDURE: XR CHEST 1V INDICATIONS: ground level fall left rib pain TECHNIQUE: One view of the chest was acquired. COMPARISON: [facility], , XR CHEST 1V, 01/04/2018, 11:24. FINDINGS: Surgical changes and devices: None. Lungs and pleura: No pleural effusions or pneumothorax. Lungs are clear. Mediastinum: Mediastinal contours appear normal. Heart size is normal. Bones and chest wall: No suspicious bony lesions. Overlying soft tissues appear unremarkable. IMPRESSION: No acute cardiopulmonary pathology. Dictated by: Colin Mendiola M.D. on 04/04/2018 at 22:05 Approved by: Colin Mendiola M.D. on 04/04/2018 at 22:05 [facility] Narrative Medical decision making narrative: Patient had a ground level fall where she struck her head. Does not sound like there was a loss of consciousness but she does take blood thinners so head CT was ordered. Patient had left-sided rib pain of the chest, shoulder which showed had good movement. She also had left hip pain and within able to weight bear on the left hip as well as left knee pain. Imaging was obtained and showed no acute findings. Patient was able to get a dressing get home with assistance from her . She plans to continue Tylenol unless it is not controlling her pain and then will take Tylenol 3. Discussed signs and symptoms to watch out for and reasons to return. Her fall sounds like it was a trip and fall and that there was no syncope or other concerning cause of her fall. Discharge Plan Departure Patient Disposition: Home Clinical Impression: Acute pain of left hip, Left sided chest pain Discharge Date/Time: 04/04/18 22:24 Interventions: ED Discharge Assessment Last Done: 04/04/18 22:23 Instructions: DI for Hip Pain Activity Restrictions/Additional Instructions: Follow-up with your primary care physician in the next 2-3 days for recheck. You may continue all your home medications as prescribed. Prescriptions: New acetaminophen-codeine [Tylenol-Codeine #3] 300-30 mg tablet 1 tab PO Q6H PRN (Reason: pain) Qty: 5 RF: 0 No Action metformin 500 mg Tablet 1,000 mg PO BID Qty: 0 RF: 0 aspirin 81 mg Tablet,Delayed Release (Dr/Ec) 81 mg PO DAILY Qty: 0 RF: 0 albuterol sulfate [ProAir HFA] 90 mcg/actuation Hfa Aerosol Inhaler 1 ea INH PRN Qty: 0 RF: 0 trazodone 100 MG tablet 100 mg PO HS Qty: 0 RF: 0 gabapentin [Neurontin] 300 MG capsule 300 mg PO DAILY Qty: 0 RF: 0 sitagliptin [Januvia] 50 MG tablet 50 mg PO QDAY Qty: 0 RF: 0 sodium chloride 5 % drops 1 drp ophthalmic (eye) DIRECTED RF: 0 atorvastatin 40 mg tablet 40 mg PO DAILY RF: 0 metoprolol succinate 25 mg tablet extended release 24 hr 25 mg PO DAILY RF: 0 ergocalciferol (vitamin D2) 50,000 unit capsule 1 cap PO QWEEK RF: 0 lisinopril 20 mg tablet 20 mg PO DAILY RF: 0 prednisone 20 mg Tablet 40 mg PO DAILY Qty: 4 RF: 0
[2018-04-04 22:23] VITALS: BP 159/57; PULSE 72; RESP 18; O2SAT 100
== END 2018-04-04 22:24 | disposition home or self-care (01) ==
PROVIDERS: Emergency Provider Emergency Medicine
DX: M25.552 Pain in left hip (principal); R07.9 Chest pain, unspecified; W18.30XA Fall on same level, unspecified, initial encounter; Z79.01 Long term (current) use of anticoagulants
CPT/HCPCS: 70450; 71045; 73503; 73522; 73562; 99283; 99284

== ENCOUNTER 2019-07-18 19:51 | Emergency (ER) | payer MEDICARE, OTHER, SELFPAY ==
[2018-01-04 16:39] VITALS: BMI 36.0
[2019-07-18 20:01] VITALS: BP 182/91; PULSE 101; RESP 20; TEMP 36.6; O2SAT 100
--- NOTE | 2019-07-18 20:11 | ED.GENADULT ---
HPI - General Adult General Chief complaint: Diabetic Problem Stated complaint: states sugars at 396 Time Seen by Provider: 07/18/19 19:56 Source: patient and family Mode of arrival: Ambulatory Limitations: no limitations History of Present Illness HPI narrative: Patient is a 68-year-old female. Known kidney disease. Is a [id number]-[id number] diabetic. Here for evaluation because her blood sugars been elevated today. She takes her blood sugars at least once a day. States they normally run in the 200s. This afternoon and this evening they have been above 300. She denies any other associated symptoms. Related Data Home Medications Medication Instructions Recorded Confirmed albuterol sulfate [ProAir HFA] 1 ea INH PRN #0 02/11/11 01/04/18 aspirin 81 mg PO DAILY #0 02/11/11 01/04/18 metformin 1,000 mg PO BID #0 02/11/11 01/04/18 gabapentin [Neurontin] 300 mg PO DAILY #0 02/02/17 01/04/18 sitagliptin [Januvia] 50 mg PO QDAY #0 02/02/17 01/04/18 trazodone 100 mg PO HS #0 02/02/17 01/04/18 atorvastatin 40 mg PO DAILY 01/04/18 01/04/18 ergocalciferol (vitamin D2) 1 cap PO QWEEK 01/04/18 01/04/18 lisinopril 20 mg PO DAILY 01/04/18 01/04/18 metoprolol succinate 25 mg PO DAILY 01/04/18 01/04/18 sodium chloride 1 drp OPHTHALMIC (EYE) DIRECTED 01/04/18 01/04/18 Previous Rx's Medication Instructions Recorded prednisone 40 mg PO DAILY #4 tab 01/06/18 acetaminophen-codeine 1 tab PO Q6H PRN #5 tab 04/04/18 [Tylenol-Codeine #3] Allergies Allergy/AdvReac Type Severity Reaction Status Date / Time acetaminophen [From VICODIN] Allergy Severe Palpitation Verified 01/05/18 06:38 s hydrocodone [From VICODIN] Allergy Severe Palpitation Verified 01/05/18 06:45 s morphine [MORPHINE] Allergy Severe Palpitation Verified 01/05/18 06:43 s Review of Systems Constitutional Constitutional: Denies fever(s) Cardiovascular Cardiovascular: Denies chest pain and Denies dyspnea Respiratory Respiratory: Denies dyspnea Gastrointestinal Gastrointestinal: Denies abdominal pain Integumentary/Breasts Skin/Breast: Denies rash Neurologic Neurologic: Denies behavioral changes Psychiatric Psychiatric: Denies behavioral changes Hematologic/Lymphatic Hematologic/Lymphatic: Denies easy bleeding and Denies easy bruising Patient History Medical History Diabetes (Acute) Social History household members: spouse Smoking Status: Never smoker alcohol intake: never Smoking Status: Never smoker Substance Use Type: does not use Exam Initial Vital Signs Initial Vital Signs: Vital Signs Temperature 97.8 F 07/18/19 20:01 Pulse Rate 101 H 07/18/19 20:01 Respiratory Rate 20 07/18/19 20:01 Blood Pressure 182/91 H 07/18/19 20:01 Pulse Oximetry 100 07/18/19 20:01 Const General: cooperative and comfortable Orientation: alert, awake and oriented x3 HENMT Head: normal to inspection and normocephalic Resp Effort & Inspection: normal respiratory effort Auscultation: clear to auscultation bilaterally Cardio Rate: regular rate Rhythm: regular rhythm GI Inspection: non-distended Palpation: soft Skin Lesions: no lesions Rashes: no rashes Neuro General: alert and awake Cognition: normal cognition Speech: speech normal Extrem General: normal to inspection and capillary refill normal Psych Appearance: grossly normal Course Orders Ordered: ED Orders 07/18/19 20:15 Complete Blood Count AUTO DIFF Stat Comprehensive Metabolic Panel Stat Ketones (Beta-Hydroxybutyrate) Stat Lipase Stat Magnesium Stat Phosphorous Stat Discontinued Medications Sodium Chloride (Normal Saline 0.9%) 1,000 mls @ 1,000 mls/hr IV BOLUS ONE Stop: 07/18/19 20:55 Last Infusion: 07/18/19 21:50 Dose: 0 mls/hr Documented by: Admin: 07/18/19 20:30 Dose: 1,000 mls/hr Documented by: DAYANA Vital Signs Vital signs: Vital Signs - 8 hr 07/18/19 20:01 07/18/19 21:00 Temperature 97.8 F Pulse Rate 101 H 77 Respiratory Rate 20 18 Blood Pressure 182/91 H Blood Pressure [Left Arm] 132/50 L Pulse Oximetry 100 96 Medical Decision Making Medical Records Medical records reviewed: Yes I reviewed the patient's medical records. Lab Data Lab results reviewed: Yes I reviewed the patient's lab results. Result diagrams: 07/18/19 20:15 07/18/19 20:15 Labs: Lab Results 07/18/19 07/18/19 Range/Units 20:15 20:15 WBC 8.5 (4.5-11.0) X10^3/uL RBC 4.03 (4.0-5.2) X10^6/uL Hgb 12.3 (12.0-16.0) g/dL Hct 36.2 (36-46) % MCV 90.0 (80-100) fL MCH 30.6 (26-34) PG MCHC 34.0 (30-36) % RDW 12.4 (11.6-14.8) % Plt Count 385 (150-400) X10^3/uL Neut % (Auto) 66.3 (50-75) % Lymph % (Auto) 26.1 (25-40) % Davison % (Auto) 6.2 (3-14) % Eos % (Auto) 0.8 L (2-4) % Baso % (Auto) 0.6 (0-2) % Neut # (Auto) 5600 (5381-5195) /uL Lymph # (Auto) 2200 (2515-3778) /uL Davison # (Auto) 500 (0-900) /uL Eos # (Auto) 100 (0-450) /uL Baso # (Auto) 100 (0-100) /uL Sodium 136 L (137-145) mmol/L Potassium 3.6 (3.4-5.1) mmol/L Chloride 94 L (98-107) mmol/L Carbon Dioxide 30 (22-32) mmol/L BUN 26 H (7-17) mg/dL Creatinine 2.40 H (0.52-1.04) mg/dL Estimated GFR 20.0 L (>60) mL/min BUN/Creatinine Ratio 10.8 (6-22) Glucose 356 H (80-110) mg/dL Calcium 9.8 (8.4-10.2) mg/dL Phosphorus 3.8 (2.8-4.1) mg/dL Magnesium 2.1 (1.6-2.3) mg/dL Total Bilirubin 0.4 (0.2-1.3) mg/dL AST 22 (14-36) IU/L ALT 16 (<35) IU/L Alkaline Phosphatase 150 H (38-126) U/L Total Protein 8.0 (6.3-8.2) g/dL Albumin 4.7 (3.5-5.0) g/dL Globulin 3.3 (1.7-4.1) g/dL Albumin/Globulin Ratio 1.4 (1.0-2.8) Lipase 181 (23-300) U/L Ketones 0.10 (<0.27) mmol/L Point of Care Testing Glucose POC 233 Point of care testing: Point of Care Testing Glucose POC 233 MDM Narrative Medical decision making narrative: Patient arrived hyperglycemic however not in DKA. This did improve with fluids. She does have an elevation in her creatinine however further discussion with the patient's this does appear to be a new baseline for her. She is being followed fairly extensively by a application tester. I did discuss blood sugars with the patient. We discussed return precautions and follow-up instructions. Both her and her expressed understanding and agreement with plan. Discharge Plan Departure Patient Disposition: Home Clinical Impression: Hyperglycemia Discharge Date/Time: 07/18/19 22:23 Instructions: DI for Hyperglycemia -- Adult Activity Restrictions/Additional Instructions: Continue to take all of your medications as directed. I recommend that you contact your primary provider and also your kidney provider to discuss the indications to start insulin. Return to the emergency department for any new or worsening symptoms Prescriptions: No Action metformin 500 mg Tablet 1,000 mg PO BID Qty: 0 RF: 0 aspirin 81 mg Tablet,Delayed Release (Dr/Ec) 81 mg PO DAILY Qty: 0 RF: 0 albuterol sulfate [ProAir HFA] 90 mcg/actuation Hfa Aerosol Inhaler 1 ea INH PRN Qty: 0 RF: 0 trazodone 100 MG tablet 100 mg PO HS Qty: 0 RF: 0 gabapentin [Neurontin] 300 MG capsule 300 mg PO DAILY Qty: 0 RF: 0 sitagliptin [Januvia] 50 MG tablet 50 mg PO QDAY Qty: 0 RF: 0 sodium chloride 5 % drops 1 drp ophthalmic (eye) DIRECTED RF: 0 atorvastatin 40 mg tablet 40 mg PO DAILY RF: 0 metoprolol succinate 25 mg tablet extended release 24 hr 25 mg PO DAILY RF: 0 ergocalciferol (vitamin D2) 50,000 unit capsule 1 cap PO QWEEK RF: 0 lisinopril 20 mg tablet 20 mg PO DAILY RF: 0 prednisone 20 mg Tablet 40 mg PO DAILY Qty: 4 RF: 0 acetaminophen-codeine [Tylenol-Codeine #3] 300-30 mg tablet 1 tab PO Q6H PRN (Reason: pain) Qty: 5 RF: 0
[2019-07-18 20:24] LABS: Add Manual Diff / Slide Review NO; Basophils Absolute Auto 100 /uL (0-100); Basophils Percent Auto 0.6 % (0-2); Eosinophils Absolute Auto 100 /uL (0-450); Eosinophils Percent Auto 0.8 % (2-4); Hematocrit 36.2 % (36-46); Hemoglobin 12.3 g/dL (12.0-16.0); Lymphocytes Absolute Auto 2200 /uL (1100-4500); Lymphocytes Percent Auto 26.1 % (25-40); Mean Corpuscular Hemoglobin 30.6 PG (26-34); Monocytes Absolute Auto 500 /uL (0-900); Monocytes Percent Auto 6.2 % (3-14); Neutrophils Absolute Auto 5600 /uL (1500-7000); Neutrophils Percent Auto 66.3 % (50-75); Platelet Count 385 X10^3/uL (150-400); Red Blood Cell Count 4.03 X10^6/uL (4.0-5.2); Red Cell Distribution Width 12.4 % (11.6-14.8); White Blood Cell Count 8.5 X10^3/uL (4.5-11.0)
[2019-07-18] MEDS: SODIUM CHLORIDE 0.9% 1,000 ML 1000 ML IV (20:30)
[2019-07-18 20:36] LABS: Alanine Aminotransferase 16 IU/L (<35); Albumin 4.7 g/dL (3.5-5.0); Albumin Globulin Ratio 1.4 (1.0-2.8); Alkaline Phosphatase 150 U/L (38-126); Aspartate Aminotransferase 22 IU/L (14-36); BUN Creatinine Ratio 10.8 (6-22); Bilirubin Total 0.4 mg/dL (0.2-1.3); Blood Urea Nitrogen 26 mg/dL (7-17); Calcium 9.8 mg/dL (8.4-10.2); Carbon Dioxide 30 mmol/L (22-32); Chloride 94 mmol/L (98-107); Globulin 3.3 g/dL (1.7-4.1); Glucose 356 mg/dL (80-110); HEMOLYSIS 27 (0-50); Lipase 181 U/L (23-300); Magnesium 2.1 mg/dL (1.6-2.3); Phosphorous 3.8 mg/dL (2.8-4.1); Potassium 3.6 mmol/L (3.4-5.1); Sodium 136 mmol/L (137-145)
[2019-07-18 21:00] VITALS: BP 132/50; PULSE 77; RESP 18; O2SAT 96
== END 2019-07-18 22:23 | disposition home or self-care (01) ==
PROVIDERS: Emergency Provider Emergency Medicine
DX: E11.65 Type 2 diabetes mellitus with hyperglycemia (principal)
CPT/HCPCS: 36415; 80053; 82009; 82962; 83690; 83735; 84100; 85025; 96360; 99284